=== PATIENT | male | born 1985 | race Caucasian/White ===

== ENCOUNTER 2018-01-29 00:31 | Emergency (ER) | payer OTHER ==
[~2018-01-29] VITALS: Ht 200.7 cm; Wt 95.2 kg
--- OUTSIDE RECORDS SUMMARY | ~2018-01-29 | XMS | Clinical Summary ---
Demographics + + + | Address | [address] | | | [place] [address] | + + + | Home Phone | | + + + | Preferred Language | Unknown | + + + | Marital Status | Single | + + + | Gnosticist Affiliation | Unknown | + + + | Race | Unknown | + + + | Ethnic Group | Unknown | + + + Author + + + | Author | [facility] | | | and [place] | + + + | Organization | [facility] | | | and [place] | + + + | Address | Unknown | + + + | Phone | Unavailable | + + + Support + + +---------+ + | Name | Relationship | Address | Phone | + + +---------+ + | Gwen Ortzi | ECON | Unknown | | + + +---------+ + Care Team Providers + +------+ + | Care Case Packer And Sealer Name | Role | Phone | + +------+ + PP | Unavailable | + +------+ + Allergies Not on File Current Medications Not on file Active Problems Not on file Social History + +-------+ +--------+------+ | Tobacco Use | Types | Packs/Day | Years | Date | | | | | Used | | + +-------+ +--------+------+ | Never Assessed | | | | | + +-------+ +--------+------+ + + + | Sex Assigned at | Date Recorded | | | | + + + | Not on file | | + + + Plan of Treatment + + + + + | Health Maintenance | Due Date | Last Done | Comments | + + + + + | Vaccine: | | | | | Dtap/Tdap/Td (1 - | 5 | | | | Tdap) | | | | + + + + + | Vaccine: Influenza | | | | | (#1) | 8 | | | + + + + + Results Not on filefrom Last 3 Months"
--- OUTSIDE RECORDS SUMMARY | ~2018-01-29 | XMS | Clinical Summary ---
Demographics + + + | Address | [address] | | | [place] [address] | + + + | Home Phone | | + + + | Preferred Language | Unknown | + + + | Marital Status | Single | + + + | Tenriism Affiliation | Unknown | + + + | Race | Unknown | + + + | Ethnic Group | Unknown | + + + Author + + + | Author | [facility] | | | and [place] | + + + | Organization | [facility] | | | and [place] | + + + | Address | Unknown | + + + | Phone | Unavailable | + + + Support + + +---------+ + | Name | Relationship | Address | Phone | + + +---------+ + | Gwen Ortiz | ECON | Unknown | | + + +---------+ + Care Team Providers + +------+ + | Care Crossing Guard Name | Role | Phone | + [...]
[2018-01-29] MEDS ORDERED: ZOFRAN ODT4 MG PO (02:41)
[2018-01-29] MEDS ORDERED: VISTARIL50 MG PO (02:41)
--- NOTE | 2018-01-29 15:25 | EKG ---
[facility] [address] [facility] [place] [address] Signed Normal sinus rhythm with sinus arrhythmia Normal ECG No previous ECGs available Confirmed by RACHEL VELEZ MD ([id number]) on 01/29/2018 3:25:42 PM Electronically Signed By: RACHEL VELEZ MD 01/29/18 1525 PATIENT NAME: BOB WOLFF Electrocardiogram DATE OF : 85 PHYSICIAN: RACHEL VELEZ MD REPORT #: [id number] REPORT IS CONFIDENTIAL AND NOT TO BE RELEASED WITHOUT AUTHORIZATION
== END 2018-01-29 03:35 | disposition home or self-care (01) ==
LOC: ED 00:31
DX: F41.9 Anxiety disorder, unspecified (principal); R07.89 Other chest pain; F17.200 Nicotine dependence, unspecified, uncomplicated
CPT/HCPCS: 71046; 80053; 84484; 85025; 93005; 93010; 96361; 96374; 99285; J2405; J7030

== ENCOUNTER 2019-08-04 14:10 | Emergency (ER) | payer OTHER ==
[~2019-08-04] VITALS: Ht 200.7 cm; Wt 102.1 kg
[~2019-08-04 14:10] MED LIST: VISTARIL50 MG PO; ZOFRAN ODT4 MG PO
== END 2019-08-04 15:08 | disposition home or self-care (01) ==
LOC: ED 14:10
DX: R05 Cough (principal); R50.9 Fever, unspecified

== ENCOUNTER 2020-09-12 07:40 | Emergency (ER) | payer SELFPAY ==
[~2020-09-12] VITALS: Ht 200.7 cm; Wt 104.3 kg
[2020-09-12] MEDS ORDERED: ACETAMINOPHEN500 MG PO (07:58)
[2020-09-12] MEDS ORDERED: AMOXICILLIN500 MG PO (08:34)
== END 2020-09-12 08:46 | disposition home or self-care (01) ==
LOC: ED 07:40
DX: J02.0 Streptococcal pharyngitis (principal); H66.41 Suppurative otitis media, unspecified, right ear; F17.200 Nicotine dependence, unspecified, uncomplicated
CPT/HCPCS: 87880; 99283; J7512

== ENCOUNTER 2021-03-08 20:35 | Emergency (ER) | payer OTHER ==
[~2021-03-08] VITALS: Ht 200.7 cm; Wt 104.3 kg
[~2021-03-08 20:35] MED LIST changes: +ACETAMINOPHEN500 MG PO; +AMOXICILLIN500 MG PO
== END 2021-03-08 23:12 | disposition home or self-care (01) ==
LOC: ED 20:35
PROC: 0HQFXZZ Repair Right Hand Skin, External Approach (ICD-10-PCS; principal; 2021-03-08)
DX: S61.210A Laceration without foreign body of right index finger without damage to nail, initial encounter (principal); F17.200 Nicotine dependence, unspecified, uncomplicated; W25.XXXA Contact with sharp glass, initial encounter
CPT/HCPCS: 12002; 99282-25

== ENCOUNTER 2024-06-08 11:05 | Emergency (ER) | payer OTHER ==
[~2024-06-08] VITALS: Ht 200.7 cm; Wt 97.1 kg
[2024-06-08 12:32] VITALS: BP 132/78
== END 2024-06-08 12:31 | disposition home or self-care (01) ==
LOC: ED 11:05
DX: L90.5 Scar conditions and fibrosis of skin (principal); F17.200 Nicotine dependence, unspecified, uncomplicated
CPT/HCPCS: 99282